=== PATIENT | female | born 1970 | race Caucasian/White ===

== ENCOUNTER → 2016-06-13 | Outpatient (CLI) | payer OTHER | END | disposition home or self-care (01) | LOC: MW.CHOBGYN 15:43 | PROVIDERS: ATTEND Nurse Practitioner Women's Health | DX: E03.9 Hypothyroidism, unspecified (principal) | CPT/HCPCS: 36415; 84443 ==

== ENCOUNTER 2018-04-20 18:23 | Emergency (ER) | payer BC ==
[2018-04-20] MEDS ORDERED: Sodium Chloride 0.9% 2.5 ML Syringe FLUSH PRN (18:46)
[2018-04-20] MEDS ORDERED: Sodium Chloride 0.9% 10 ML Syringe FLUSH PRN (18:46)
[2018-04-20] MEDS ORDERED: Sodium Chloride 0.9% 1,000 ML IV ONE (18:46)
--- NOTE | 2018-04-20 18:47 | EDM.PDOC ---
ED HPI GENERAL MEDICAL PROBLEM - General Chief Complaint: Cardiovascular Problem Stated Complaint: HIGH BLOOD PRESSURE Time Seen by Provider: 04/20/18 18:47 Source of Information: Reports: Patient History Limitations: Reports: No Limitations - History of Present Illness INITIAL COMMENTS - FREE TEXT/NARRATIVE: HISTORY AND PHYSICAL: History of present illness: Patient's a 48-year-old female presented to the ED with complaint of hypertension. She states that for the past week her blood pressure has been on the 190s/100s. She is on losartan 20mg daily. She states she has a "migraine" which is typical for her and is not new or worse than her typical headaches. She has history of pseudotumor cerebri and attributes her headaches to this. She denies chest pain, shortness of breath, visual changes, nausea, vomiting, abdominal pain, diaphoresis, urinary or bowel symptoms. Her BP while I am talking with her is 168/77. Review of systems: As per history of present illness and below otherwise all systems reviewed and negative. Past medical history: As per history of present illness and as reviewed below otherwise noncontributory. Surgical history: As per history of present illness and as reviewed below otherwise noncontributory. Social history: No reported history of drug or alcohol abuse. Family history: As per history of present illness and as reviewed below otherwise noncontributory. Physical exam: General: Patient sitting comfortably in no acute distress and nontoxic appearing HEENT: Atraumatic, normocephalic, pupils reactive, negative for conjunctival pallor or scleral icterus, mucous membranes moist, throat clear, neck supple, nontender, trachea midline. No meningeal signs. Lungs: Clear to auscultation, breath sounds equal bilaterally, chest nontender. Heart: S1S2, regular, negative for clicks, rubs, or overt murmur. Abdomen: Soft, nondistended, nontender. Negative for masses or hepatosplenomegaly. Negative for costovertebral tenderness. No rigidity, rebound , guarding. Pelvis: Stable nontender. Genitourinary: Deferred. Rectal: Deferred. Extremities: Atraumatic, negative for cords or calf pain. Neurovascular unremarkable. Neuro: Awake, alert, oriented. Cranial nerves II through XII unremarkable. Cerebellum unremarkable. Motor and sensory unremarkable throughout. Exam nonfocal. Notes: Discussed with patient that her BP is slightly elevated today and I don' t believe it is necessary for me to drop it any lower with medications today. She is agreeable to this. I did discuss treating her headache today, she agrees to IV fluids but states she has medications at home she can take and declines any further therapeutics. Patient states her headache is worsening and now requesting medications for this. I will give her some clonidine to lower her BP as well as a migraine cocktail. Diagnostics: EKG, CBC, CMP Therapeutics: 1L Normal Saline IV 0.1mg Clonidine PO 30mg Toradol IV 4mg Zofran IV 50mg Benadryl IV 10mg Reglan IV Prescriptions: Impression: Headache, Hypertension Plan:1. Drink plenty of fluids as instructed. Continue losartan as prescribed. 2. Follow up with primary care provider 3. Return to ED As needed as discussed Definitive disposition and diagnosis as appropriate pending reevaluation and review of above. headache Pain Score (Numeric/FACES): 3 - Related Data Allergies Allergy/AdvReac Type Severity Reaction Status Date / Time aspirin Allergy Anaphylactic Verified 02/20/16 16:08 Shock ibuprofen Allergy Other Verified 04/20/18 18:36 iodine Allergy Pain Verified 04/20/18 18:36 Penicillins Allergy Anaphylactic Verified 02/20/16 16:08 Shock Home Meds: Home Meds Levothyroxine Sodium [Synthroid] 150 mcg PO DAILY 04/20/18 [History] Losartan Potassium 50 mg PO DAILY 04/20/18 [History] Past Medical History HEENT History: Reports: None Cardiovascular History: Reports: Hypertension Respiratory History: Reports: None Gastrointestinal History: Reports: None Genitourinary History: Reports: None 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 Musculoskeletal History: Reports: None Neurological History: Reports: None Psychiatric History: Reports: None Endocrine/Metabolic History: Reports: Hypothyroidism Hematologic History: Reports: None Immunologic History: Reports: None Oncologic (Cancer) History: Reports: None Dermatologic History: Reports: None - Past Surgical History Head Surgeries/Procedures: Reports: None HEENT Surgical History: Reports: None Cardiovascular Surgical History: Reports: None Respiratory Surgical History: Reports: None GI Surgical History: Reports: None Female Surgical History: Reports: Section, Tubal Ligation Endocrine Surgical History: Reports: None Neurological Surgical History: Reports: None Musculoskeletal Surgical History: Reports: None Oncologic Surgical History: Reports: None Dermatological Surgical History: Reports: None Social & Family History - Family History Family Medical History: Noncontributory - Tobacco Use Smoking Status *Q: Never Smoker Second Hand Smoke Exposure: No - Caffeine Use Caffeine Use: Reports: Soda - Recreational Drug Use Recreational Drug Use: No ED ROS GENERAL - Review of Systems Review Of Systems: ROS reveals no pertinent complaints other than HPI. ED EXAM, GENERAL - Physical Exam Exam: See Below (see dictation) Course - Vital Signs Last Recorded V/S: Last Vital Signs Temp 98.2 F 04/20/18 18:37 Pulse 71 04/20/18 18:37 Resp 18 04/20/18 18:37 BP 174/96 H 04/20/18 19:58 Pulse Ox 98 04/20/18 18:37 - Orders/Labs/Meds Orders: Active Orders 24 hr Category Date Time Status Sodium Chloride 0.9% [Saline Flush] Med 04/20/18 18:46 Active 10 ml FLUSH ASDIRECTED PRN Sodium Chloride 0.9% [Saline Flush] Med 04/20/18 18:46 Active 2.5 ml FLUSH ASDIRECTED PRN Saline Lock Insert [OM.PC] Stat Oth 04/20/18 18:46 Ordered Medication Orders Sodium Chloride (Saline Flush) 10 ml FLUSH ASDIRECTED PRN PRN Reason: Keep Vein Open Last Admin: 04/20/18 19:04 Dose: 10 ml Sodium Chloride (Saline Flush) 2.5 ml FLUSH ASDIRECTED PRN PRN Reason: Keep Vein Open Last Admin: 04/20/18 19:04 Dose: 2.5 ml Labs: Laboratory Tests 04/20/18 04/20/18 04/20/18 Range/Units 19:00 19:00 19:55 WBC 7.96 (4.0-11.0) K/uL RBC 4.82 (4.30-5.90) M/uL Hgb 13.2 (12.0-16.0) g/dL Hct 38.9 (36.0-46.0) % MCV 80.7 (80.0-98.0) fL MCH 27.4 (27.0-32.0) pg MCHC 33.9 (31.0-37.0) g/dL RDW Std Deviation 41.2 (28.0-62.0) fl RDW Coeff of Lisa 14 (11.0-15.0) % Plt Count 269 (150-400) K/uL MPV 9.80 (7.40-12.00) fL Neut % (Auto) 54.5 (48.0-80.0) % Lymph % (Auto) 34.7 (16.0-40.0) % [place] % (Auto) 7.8 (0.0-15.0) % Eos % (Auto) 2.5 (0.0-7.0) % Baso % (Auto) 0.5 (0.0-1.5) % Neut # (Auto) 4.3 (1.4-5.7) K/uL Lymph # (Auto) 2.8 H (0.6-2.4) K/uL [place] # (Auto) 0.6 (0.0-0.8) K/uL Eos # (Auto) 0.2 (0.0-0.7) K/uL Baso # (Auto) 0.0 (0.0-0.1) K/uL Nucleated RBC % 0.0 /100WBC Nucleated RBCs # 0 K/uL Sodium 138 (136-145) mmol/L Potassium 3.3 L (3.5-5.1) mmol/L Chloride 103 (98-107) mmol/L Carbon Dioxide 26.8 (21.0-32.0) mmol/L BUN 14 (7.0-18.0) mg/dL Creatinine 0.9 (0.6-1.0) mg/dL Est Cr Clr Drug Dosing 76.28 mL/min Estimated GFR (MDRD) > 60.0 ml/min Glucose 139 H (74-106) mg/dL Calcium 8.3 L (8.5-10.1) mg/dL Total Bilirubin 0.3 (0.2-1.0) mg/dL AST 10 L (15-37) IU/L ALT 17 (14-63) IU/L Alkaline Phosphatase 110 (46-116) U/L Total Protein 6.9 (6.4-8.2) g/dL Albumin 3.4 (3.4-5.0) g/dL Globulin 3.5 (2.6-4.0) g/dL Albumin/Globulin Ratio 1.0 (0.9-1.6) Urine Color YELLOW Urine Appearance CLEAR Urine pH 6.0 (5.0-8.0) Ur Specific [place] >= 1.030 (1.001-1.035) Urine Protein NEGATIVE (NEGATIVE) mg/dL Urine Glucose (UA) NEGATIVE (NEGATIVE) mg/dL Urine Ketones NEGATIVE (NEGATIVE) mg/dL Urine Occult Blood NEGATIVE (NEGATIVE) Urine Nitrite NEGATIVE (NEGATIVE) Urine Bilirubin NEGATIVE (NEGATIVE) Urine Urobilinogen 1.0 (<2.0) EU/dL Ur Leukocyte Esterase NEGATIVE (NEGATIVE) Meds: Medications Generic Name Dose Route Start Last Admin Trade Name Freq PRN Reason Stop Dose Admin Sodium Chloride 10 ml 04/20/18 18:46 04/20/18 19:04 Saline Flush FLUSH 10 ml ASDIRECTED PRN Administration Keep Vein Open Sodium Chloride 2.5 ml 04/20/18 18:46 04/20/18 19:04 Saline Flush FLUSH 2.5 ml ASDIRECTED PRN Administration Keep Vein Open Discontinued Medications Generic Name Dose Route Start Last Admin Trade Name Freq PRN Reason Stop Dose Admin Clonidine HCl 0.1 mg 04/20/18 19:45 04/20/18 19:58 Catapres PO 04/20/18 19:46 0.1 mg ONETIME ONE Administration Diphenhydramine HCl 50 mg 04/20/18 19:51 04/20/18 20:11 Benadryl IVPUSH 04/20/18 19:52 50 mg ONETIME ONE Administration Sodium Chloride 1,000 mls @ 999 mls/hr 04/20/18 18:46 04/20/18 19:03 Normal Saline IV 04/20/18 19:46 999 mls/hr STAT ONE Administration Ketorolac Tromethamine 30 mg 04/20/18 19:50 04/20/18 20:09 Toradol IVPUSH 04/20/18 19:51 30 mg ONETIME ONE Administration Metoclopramide HCl 10 mg 04/20/18 19:50 04/20/18 20:13 Reglan IV 04/20/18 19:51 10 mg ONETIME ONE Administration Ondansetron HCl 4 mg 04/20/18 19:51 04/20/18 20:16 Zofran IVPUSH 04/20/18 19:52 4 mg ONETIME ONE Administration Departure - Departure Time of Disposition: 20:40 Disposition: Home, Self-Care 01 Condition: Good Clinical Impression: Headache, Hypertension Clinical Impression: (Ruled Out): Hypertension affecting Referrals: PCP,None [Primary Care Provider] - Forms: ED Department Discharge Additional Instructions: The following information is given to patients seen in the emergency department who are being discharged to home. This information is to outline your options for follow-up care. We provide all patients seen in our emergency department with a follow-up referral. The need for follow-up, as well as the timing and circumstances, are variable depending upon the specifics of your emergency department visit. If you don't have a primary care physician on staff, we will provide you with a referral. We always advise you to contact your personal physician following an emergency department visit to inform them of the circumstance of the visit and for follow-up with them and/or the need for any referrals to a consulting specialist. The emergency department will also refer you to a specialist when appropriate. This referral assures that you have the opportunity for follow-up care with a specialist. All of these measure are taken in an effort to provide you with optimal care, which includes your follow-up. Under all circumstances we always encourage you to contact your private physician who remains a resource for coordinating your care. When calling for follow-up care, please make the office aware that this follow-up is from your recent emergency room visit. If for any reason you are refused follow-up, please contact the [facility] Emergency Department at and asked to speak to the emergency department charge nurse. [facility] [address] [place] [id number] [address] 1. Drink plenty of fluids as instructed. Continue losartan as prescribed. 2. Follow up with primary care provider 3. Return to ED As needed as discussed - My Orders Last 24 Hours: My Active Orders 04/20/18 18:46 Sodium Chloride 0.9% [Saline Flush] 10 ml FLUSH ASDIRECTED PRN Sodium Chloride 0.9% [Saline Flush] 2.5 ml FLUSH ASDIRECTED PRN Saline Lock Insert [OM.PC] Stat - Assessment/Plan Last 24 Hours: My Active Orders 04/20/18 18:46 Sodium Chloride 0.9% [Saline Flush] 10 ml FLUSH ASDIRECTED PRN Sodium Chloride 0.9% [Saline Flush] 2.5 ml FLUSH ASDIRECTED PRN Saline Lock Insert [OM.PC] Stat
[2018-04-20 19:43] LABS: CHLORIDE,CL 103 mmol/L (98-107); SODIUM,NA 138 mmol/L (136-145)
[2018-04-20] MEDS ORDERED: cloNIDine 0.1 MG Tab PO ONE (19:45)
[2018-04-20] MEDS ORDERED: Metoclopramide 10 MG/2 ML SDV IV ONE (19:50)
[2018-04-20] MEDS ORDERED: Ketorolac 30 MG/ML SDV IVPUSH ONE (19:50)
[2018-04-20] MEDS ORDERED: diphenhydrAMINE 50 MG/ML SDV IVPUSH ONE (19:51)
[2018-04-20] MEDS ORDERED: Ondansetron 4 MG/2 ML SDV IVPUSH ONE (19:51)
[2018-04-20 20:42] VITALS: BP 174/88
== END 2018-04-20 20:55 | disposition home or self-care (01) ==
LOC: MW.ED 18:23
DX: I10 Essential (primary) hypertension (principal); Z88.8 Allergy status to other drugs, medicaments and biological substances; Z88.0 Allergy status to penicillin; Z88.6 Allergy status to analgesic agent; Z79.899 Other long term (current) drug therapy
CPT/HCPCS: 36415; 80053; 81003; 85025; 93005; 96361; 96374; 96375; 99284; A9270; J1200; J1885; J2405; J2765; J7040; 99283

== ENCOUNTER 2018-05-02 06:48 | Day surgery (SDC) | payer BC ==
[~2018-05-02 06:48] MED LIST: Clindamycin Phosphate in D5W 600 MG in Premix Bag 1 BAG IV ONE; Lactated Ringers 1,000 ML IV SCH; Sodium Chloride 0.9% 10 ML SDV IV PRN; Sodium Chloride 0.9% 10 ML Syringe FLUSH PRN; Sodium Chloride 0.9% 2.5 ML Syringe FLUSH PRN
[2018-05-02] MEDS ORDERED: Neostigmine Methylsulfate 1 MG/ML 5 ML Syringe ONE (07:08)
[2018-05-02] MEDS ORDERED: Glycopyrrolate 0.2 MG/ML SDV ONE (07:08)
[2018-05-02] MEDS ORDERED: Lidocaine 2% 5 ML SDV ONE (07:08)
[2018-05-02] MEDS ORDERED: Ondansetron 4 MG/2 ML SDV ONE (07:08)
[2018-05-02] MEDS ORDERED: Rocuronium 10 MG/ML 10 ML Syringe ONE (07:08)
[2018-05-02] MEDS ORDERED: Midazolam 1 MG/ML 2 ML SDV ONE (07:09)
[2018-05-02] MEDS ORDERED: fentaNYL 250 MCG/5 ML SDV ONE (07:09)
[2018-05-02] MEDS ORDERED: Propofol 200 MG/20 ML SDV ONE (07:09)
--- NOTE | 2018-05-02 07:21 | PCM.PREANE ---
Preanesthetic Assessment - Anesthesia/Transfusion/Family Hx Anesthesia History: Prior Anesthesia Without Reaction Transfusion History: No Prior Transfusion(s) - Review of Systems General: No Symptoms Pulmonary: No Symptoms Cardiovascular: No Symptoms Gastrointestinal: No Symptoms Neurological: No Symptoms Other: Reports: None - Physical Assessment Height: 5 ft 8 in Weight: 104.78 kg ASA Class: 2 Mental Status: Alert & Oriented x3 Airway Class: Mallampati = 2 Dentition: Reports: Normal Dentition Thyro-Mental Finger Breadths: 3 Mouth Opening Finger Breadths: 3 ROM/Head Extension: Full Lungs: Clear to Auscultation, Normal Respiratory Effort Cardiovascular: Regular Rate, Regular Rhythm - Allergies Allergies/Adverse Reactions: Allergies Allergy/AdvReac Type Severity Reaction Status Date / Time aspirin Allergy Anaphylactic Verified 04/30/18 09:16 Shock ibuprofen Allergy Itching Verified 04/30/18 13:37 iodine Allergy Hives Verified 04/30/18 13:37 Penicillins Allergy Anaphylactic Verified 04/30/18 09:16 Shock - Acknowledgements Anesthesia Type Planned: General Anesthesia Pt an Appropriate Candidate for the Planned Anesthesia: Yes Alternatives and Risks of Anesthesia Discussed w Pt/Guardian: Yes Pt/Guardian Understands and Agrees with Anesthesia Plan: Yes PreAnesthesia Questionnaire HEENT History: Reports: Other (See Below) Other HEENT History: wears glasses, top partial Cardiovascular History: Reports: Hypertension Other Cardiovascular History: murmur as a young adult Respiratory History: Reports: None Gastrointestinal History: Reports: None Genitourinary History: Reports: Pyelonephritis 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: Musculoskeletal History: Reports: Fracture Other Musculoskeletal History: hx fx collarbone Neurological History: Reports: Concussion, Migraines, Other (See Below) Other Neuro History: pseudotumor cerebri Psychiatric History: Reports: Anxiety, Depression, PTSD Endocrine/Metabolic History: Reports: Hypothyroidism, Obesity/BMI 30+ Hematologic History: Reports: None Immunologic History: Reports: None Oncologic (Cancer) History: Reports: None Dermatologic History: Reports: None - Past Surgical History Head Surgeries/Procedures: Reports: None HEENT Surgical History: Reports: None Cardiovascular Surgical History: Reports: None Respiratory Surgical History: Reports: None GI Surgical History: Reports: None Female Surgical History: Reports: Section, Hysterectomy, Tubal Ligation Endocrine Surgical History: Reports: None Neurological Surgical History: Reports: None Musculoskeletal Surgical History: Reports: None Oncologic Surgical History: Reports: None Dermatological Surgical History: Reports: None - SUBSTANCE USE Smoking Status *Q: Never Smoker Recreational Drug Use History: No - HOME MEDS Home Medications: Home Meds Levothyroxine Sodium [Synthroid] 150 mcg PO DAILY 04/20/18 [History] Losartan Potassium 100 mg PO BEDTIME 04/20/18 [History] Acetaminophen [Tylenol] 1 - 2 tab PO ASDIRECTED PRN 04/30/18 [History] Butalb/Acetaminophen/Caffeine [Lgfaid-Vzmjtwkg-Amqk 50-325-40] 1 - 2 tab PO ASDIRECTED PRN 04/30/18 [History] Calcium Carbonate [Tums] 1 tab.chew CHEW ASDIRECTED PRN 04/30/18 [History] Chlorthalidone 50 mg PO BEDTIME 04/30/18 [History] - CURRENT (IN HOUSE) MEDS Current Meds: Current Medications Lactated Ringer's (Ringers, Lactated) 1,000 mls @ 125 mls/hr IV ASDIRECTED JIM Sodium Chloride (Saline Flush) 10 ml FLUSH ASDIRECTED PRN PRN Reason: Keep Vein Open Sodium Chloride (Saline Flush) 2.5 ml FLUSH ASDIRECTED PRN PRN Reason: Keep Vein Open Sodium Chloride (Normal Saline) 10 ml IV ASDIRECTED PRN PRN Reason: IV Use Discontinued Medications Fentanyl (Sublimaze) Confirm Administered Dose 250 mcg .ROUTE .STK-MED ONE Stop: 05/02/18 07:10 Glycopyrrolate (Robinul) Confirm Administered Dose 0.4 mg .ROUTE .STK-MED ONE Stop: 05/02/18 07:09 Clindamycin Phosphate 600 mg/ (Premix) 50 mls @ 100 mls/hr IV ONETIME ONE Stop: 05/01/18 09:14 Lidocaine (Xylocaine-Mpf 2%) Confirm Administered Dose 5 ml .ROUTE .STK-MED ONE Stop: 05/02/18 07:09 Midazolam HCl (Versed 1 Mg/Ml) Confirm Administered Dose 2 mg .ROUTE .STK-MED ONE Stop: 05/02/18 07:10 Neostigmine Methylsulfate (Neostigmine) Confirm Administered Dose 5 mg .ROUTE .STK-MED ONE Stop: 05/02/18 07:09 Ondansetron HCl (Zofran) Confirm Administered Dose 4 mg .ROUTE .STK-MED ONE Stop: 05/02/18 07:09 Propofol (Diprivan 20 Ml) Confirm Administered Dose 200 mg .ROUTE .STK-MED ONE Stop: 05/02/18 07:10 Rocuronium [place] (Zemuron) Confirm Administered Dose 100 mg .ROUTE .STK-MED ONE Stop: 05/02/18 07:09
[2018-05-02] MEDS ORDERED: Scopolamine 1.5 MG Transdermal Patch TOP ONE (07:22)
[2018-05-02] MEDS ORDERED: Albuterol 0.083% 2.5 MG/3 ML Neb Soln NEB PRN (07:22)
[2018-05-02] MEDS ORDERED: Naloxone 0.4 MG/ML Syringe IVPUSH PRN (07:22)
[2018-05-02] MEDS ORDERED: Atropine 0.1 MG/ML 10 ML Syringe IVPUSH PRN ×2 (07:22)
[2018-05-02] MEDS ORDERED: EPINEPHrine 1:10,000 1 MG/10 ML Syringe IVPUSH PRN (07:22)
[2018-05-02] MEDS ORDERED: fentaNYL 100 MCG/2 ML SDV IVPUSH PRN (07:22)
[2018-05-02] MEDS ORDERED: 50% Dextrose in Water 50 ML Syringe IVPUSH PRN (07:22)
[2018-05-02] MEDS ORDERED: Bupivacaine 0.5% 30 ML SDV ONE ×2 (07:49→08:46)
[2018-05-02] MEDS ORDERED: Clindamycin Phosphate in D5W 50 ML ONE (07:56)
[2018-05-02] MEDS ORDERED: ePHEDrine 50 MG/ML SDV ONE (08:48)
[2018-05-02] MEDS ORDERED: Sodium Chloride 0.9% 20 ML ONE (08:49)
[2018-05-02] MEDS ORDERED: fentaNYL 100 MCG/2 ML SDV ONE (09:28)
[2018-05-02] MEDS ORDERED: Arista AH Absorbable Hemostat ONE (09:28)
[2018-05-02] MEDS ORDERED: Acetaminophen/oxyCODONE 325-5 MG Tab PO PRN (10:07)
--- NOTE | 2018-05-02 10:15 | PCM.OPNOTE ---
- General Post-Op/Procedure Note Date of Surgery/Procedure: 05/02/18 Operative Procedure(s): Laparoscopic cholecystectomy with lysis of adhesions Findings: Enlarged gallbladder containing multiple stones. One large stone in the neck. The galbladder was incased in inflamed omentum. Pre Op Diagnosis: Symptomatic cholelithiasis Post-Op Diagnosis: Chronic cholecystitis with calculus Anesthesia Technique: General ET Tube Primary Surgeon: Yanet Doss Pathology: Gallbladder Fluid Replacement, Intraop: 1,800 Output, Urine Amount: 100 EBL in mLs: 25 Condition: Good
[2018-05-02] MEDS ORDERED: Promethazine 25 MG/ML SDV IM ONE (10:36)
--- NOTE | 2018-05-02 10:36 | PCM.POSTAN ---
POST ANESTHESIA ASSESSMENT - MENTAL STATUS Mental Status: Alert, Oriented - RESPIRATORY Respiratory Status: Respiratory Rate WNL, Airway Patent, O2 Saturation Stable - CARDIOVASCULAR CV Status: Pulse Rate WNL, Blood Pressure Stable - GASTROINTESTINAL GI Status: No Symptoms Free Text/Narrative:: Slight nausea - PAIN Pain Score: 3 - POST OP HYDRATION Hydration Status: Adequate & Stable
[2018-05-02] MEDS ORDERED: Acetaminophen 1,000 MG in Premix Bag 1 BAG IV ONE (11:01)
[2018-05-02] MEDS ORDERED: oxyCODONE 5 MG Tab PO ONE (11:03)
[2018-05-02] MEDS ORDERED: Ketorolac 30 MG/ML SDV IVPUSH ONE (11:04)
[2018-05-02] MEDS ORDERED: HYDROmorphone 2 MG/ML SDV IVPUSH ONE (11:42)
[2018-05-02] MEDS ORDERED: HYDROmorphone 2 MG/ML Syringe ONE (11:51)
[2018-05-02] MEDS ORDERED: Haloperidol Lactate 5 MG/ML SDV IM ONE (11:58)
--- NOTE | 2018-05-02 13:01 | OR ---
SURGEON: HARSHA CALDERON MD DATE OF PROCEDURE: 05/02/2018 PREOPERATIVE DIAGNOSIS: Symptomatic cholelithiasis. POSTOPERATIVE DIAGNOSIS: Chronic cholecystitis with calculous. PROCEDURE PERFORMED: Laparoscopic cholecystectomy with lysis of adhesions. ANESTHESIA: General endotracheal anesthesia. FLUIDS: 1800 mL of crystalloid. URINE OUTPUT: 100 mL. ESTIMATED BLOOD LOSS: 25 mL. FINDINGS: Enlarged gallbladder, full of multiple stones. One large stone at the neck of the gallbladder. Gallbladder encased in thickened and inflamed omentum, requiring lysis of adhesions. COMPLICATIONS: None. INDICATIONS: The patient is a 48-year-old female who presents with chronic right upper quadrant pain. Recent workup revealed cholelithiasis with no evidence of cholecystitis. The patient and I discussed the nature of biliary disease. I explained that the treatment for symptomatic cholelithiasis was removal of the gallbladder. We discussed the laparoscopic and open approaches. I will attempt it laparoscopically, but should I be unable to perform it safely, I will convert to open. We discussed the expected perioperative course as well as the risks including bleeding, infection, or damage to surrounding structures. The patient verbalized understanding and wishes to proceed. PROCEDURE IN DETAIL: The patient was brought into the OR and placed on the OR table in supine position. A time-out was completed verifying the patient's name, age, date of , allergies, and procedure to be performed. General endotracheal anesthesia was induced. The left arm was tucked to the patient's side and a Bradley catheter placed. The abdomen was prepped and draped in usual standard fashion. I anesthetized the area above the umbilicus with 0.5% Marcaine plain. A 15 blade was used to make a 2 cm incision along the supraumbilical midline. Cautery was used to dissect down to the subcutaneous fat. S retractors were used to dissect bluntly down to the level of the fascia. The fascia was elevated with Aníbal's and incised sharply with Lyons scissors. The peritoneum was grasped with hemostats, elevated, and incised sharply with Metzenbaum scissors. Entry into the abdomen was palpated. Stay sutures were placed on either side of the fascia using 0 Vicryl. A 12 mm Kip trocar was placed in the abdomen and the abdomen insufflated. A 5 mm 30-degree scope was inserted and I inspected the area underneath my initial trocar placement. No damage to surrounding structures was noted. The patient was placed in reverse Trendelenburg position and airplaned slightly to the left. 5 mm trocars were placed in the following locations under direct visualization, one in the epigastric area, one in the right flank, and one 2 fingerbreadths below the right subcostal margin in the midclavicular line. The gallbladder was noted to be encased in thickened and inflamed omentum. Hook cautery and blunt dissection were used to take this down off both gallbladder and the liver edge. I was able to work my way down to the infundibulum. The infundibulum was inflamed and covered in a rind of fatty tissue. Using blunt dissection, I was able to take this down and identified my cystic duct and cystic artery. I cleared away the proximal cystic plate. A photograph was taken. Once I had reached my critical view, I triply clipped and ligated the cystic duct. I doubly clipped and ligated the cystic artery. The gallbladder was then taken off the remainder of the cystic plate using electrocautery. It was placed in an EndoCatch bag and removed through the supraumbilical port site. I had to extend my supraumbilical incision due to the fact that the gallbladder had a large stone in it. I then placed my Kip trocar back in the abdomen and inspected my operative field. It appeared to be hemostatic with no evidence of bile leakage. I irrigated the abdomen with 1 L of normal saline until it ran clear. It was suctioned out. I then removed my 5 mm trocars under direct visualization and allowed the abdomen to desufflate. The 12 mm Kip trocar was removed. I closed the fascia at the supraumbilical port site with [id number] 0 Vicryl sutures. I then closed the subcutaneous fat layer with interrupted 3-0 Vicryl. The skin was closed with running 4-0 Monocryl stitch. The 5 mm trocar sites were closed with interrupted 4-0 Monocryl sutures. Steri-Strips and sterile dressings were applied. All counts were complete and correct at the end of the case. The patient tolerated procedure well and was taken to PACU in stable condition. ELVIS NORIEGA /[id number] MOI
[2018-05-02 14:41] VITALS: BP 131/72
--- NOTE | 2018-05-02 15:09 | PCM48HPAN ---
Post Anesthesia Note - EVALUATION WITHIN 48HRS OF ANESTHETIC Vital Signs in Normal Range: Yes Patient Participated in Evaluation: Yes Respiratory Function Stable: Yes Airway Patent: Yes Cardiovascular Function Stable: Yes Hydration Status Stable: Yes Pain Control Satisfactory: Yes Nausea and Vomiting Control Satisfactory: Yes Mental Status Recovered: Yes Resp Rate: 16
== END 2018-05-02 15:00 | disposition home or self-care (01) ==
LOC: MW.SDS 06:48
PROVIDERS: ATTEND Surgery
DX: K80.10 Calculus of gallbladder with chronic cholecystitis without obstruction (principal); I10 Essential (primary) hypertension; E03.9 Hypothyroidism, unspecified; F41.9 Anxiety disorder, unspecified; F32.9 Major depressive disorder, single episode, unspecified; G43.909 Migraine, unspecified, not intractable, without status migrainosus; M18.12 Unilateral primary osteoarthritis of first carpometacarpal joint, left hand; Z88.6 Allergy status to analgesic agent; Z91.048 Other nonmedicinal substance allergy status; Z79.899 Other long term (current) drug therapy
CPT/HCPCS: 47562; A9270; J0131; J1630; J1885; J2001; J2250; J2405; J2550; J2704; J3010; J3490; J7120; 88304

== ENCOUNTER 2021-08-06 12:10 | Emergency (ER) | payer BC ==
[2021-08-06] MEDS ORDERED: Bacitracin Oint 1 GM U/D Packet TOP STA (14:22)
[2021-08-06 14:31] VITALS: BP 157/100; PULSE 56
== END 2021-08-06 14:31 | disposition home or self-care (01) ==
LOC: MW.ED 12:10
DX: S80.02XA Contusion of left knee, initial encounter (principal); S80.12XA Contusion of left lower leg, initial encounter; S00.81XA Abrasion of other part of head, initial encounter; Z88.6 Allergy status to analgesic agent; Z88.0 Allergy status to penicillin; Z88.8 Allergy status to other drugs, medicaments and biological substances; Z79.899 Other long term (current) drug therapy; V00.141A Fall from scooter (nonmotorized), initial encounter
CPT/HCPCS: 73562-26-LT; 73562-LT; 73590-26-LT; 73590-LT; 99283

== ENCOUNTER 2022-10-04 10:46 | Emergency (ER) | payer BC ==
[2022-10-04 11:05] VITALS: BP 140/78
[2022-10-04 11:13] LABS: APPEARANCE,URINE CLEAR; BILIRUBIN,URINE NEGATIVE (NEGATIVE); COLOR,URINE YELLOW; GLUCOSE,URINE NEGATIVE (NEGATIVE); KETONES,URINE NEGATIVE (NEGATIVE); LEUKOCYTE ESTERASE,URINE MODERATE (NEGATIVE); NITRITE,URINE NEGATIVE (NEGATIVE); OCCULT BLOOD,URINE NEGATIVE (NEGATIVE); PROTEIN,URINE NEGATIVE (NEGATIVE)
[2022-10-04 11:34] LABS: BACTERIA,URINE 1+ (NEGATIVE); EPITHELIAL CELLS,URINE FEW (NONE-FEW); MUCUS,URINE LIGHT (NONE-MOD); RBC,URINE 0-1 (0-2/HPF)
[2022-10-04 12:13] VITALS: PULSE 55
== END 2022-10-04 12:12 | disposition home or self-care (01) ==
LOC: MW.ED 10:46
DX: N30.00 Acute cystitis without hematuria (principal); I10 Essential (primary) hypertension; E03.9 Hypothyroidism, unspecified; E66.9 Obesity, unspecified; Z68.29 Body mass index [BMI] 29.0-29.9, adult; Z88.8 Allergy status to other drugs, medicaments and biological substances; Z88.5 Allergy status to narcotic agent; Z88.6 Allergy status to analgesic agent; Z88.0 Allergy status to penicillin; Z79.899 Other long term (current) drug therapy; Z98.890 Other specified postprocedural states
CPT/HCPCS: 81001; 87086; 99283; 99284